=== PATIENT | male | born 1990 | race Caucasian/White ===

== ENCOUNTER 2023-01-31 01:44 | Emergency (ER) | payer MEDICAID, SELFPAY ==
--- NOTE | ~2023-01-31 | XR_ITS ---
EXAMINATION: XR ANKLE, RIGHT CLINICAL INFORMATION: Question of lateral malleolus fracture. COMPARISON: None TECHNIQUE: AP, lateral, and mortise views of the right ankle. FINDINGS: No fracture. Alignment is anatomic. Joint spaces are maintained. No joint effusion. Small tibiotalar marginal osteophytes. No significant soft tissue swelling. XR/XR ankle RT 2V IMPRESSION: No acute fracture or dislocation.
--- NOTE | ~2023-01-31 | XR_ITS ---
EXAMINATION: XR FOOT, LEFT CLINICAL INFORMATION: Pain. Evaluate for fifth toe fracture COMPARISON: None TECHNIQUE: AP, lateral, and oblique views of the left foot. FINDINGS: The bones and soft tissues are normal. No fracture, with attention to the fifth digit. Alignment is anatomic. Joint spaces are maintained. XR/XR foot LT 2V IMPRESSION: Normal left foot.
[2023-01-31 01:53] VITALS: BP 131/80; PULSE 75; RESP 16; TEMP 36.7; O2SAT 100
[2023-01-31 01:59] VITALS: BMI 24.4
--- NOTE | 2023-01-31 02:05 | ED.LOWEXIN ---
HPI - Extremity Injury (Lower) General Chief Complaint: Extremity Injury, Lower Stated Complaint: foot inj, toe infection Time Seen by Provider: 01/31/23 01:56 Source: patient Mode of arrival: ambulatory Limitations: no limitations History of Present Illness HPI Narrative: Patient comes to the emergency room complaining of blisters in both feet. Patient states that he is homeless, he has been walking long distance with wet socks. Patient complaining of left 5th toe pain and right ankle pain. Denies any injuries. Related Data Previous Rx's Medication Instructions Recorded terbinafine HCl 1 % topical cream 1 appl topical BID #30 grams 01/31/23 (Athlete's Foot (terbinafine)) Allergies Allergy/AdvReac Type Severity Reaction Status Date / Time No Known Allergies Allergy Verified 01/31/23 02:05 Review of Systems Review of Systems: Constitutional : No Weight loss, No Fever, No Chills, No Night Sweats, No Fatigue, No Malaise ENT/Mouth : No Hearing loss, No Ear Pain, No Nasal Congestion, No Sinus Pain, No Hoarseness, No sore throat, No Rhinorrhea, No Swallowing Difficulty Eyes: No Eye Pain, No Swelling, No Redness, No Foreign Body, No Discharge, No Vision Changes Cardiovascular : No Chest Pain, No SOB, No Dyspnea on Exertion, No Orthopnea, No Edema, No Palpitations Respiratory : No Cough, No Sputum, No Wheezing, No Smoke Exposure, No Dyspnea Gastrointestinal : No Nausea, No Vomiting, No Diarrhea, No Constipation, No abdominal Pain, No Hematochezia, No Melena Genitourinary : no irregular bleeding, No Dysuria, No Urinary Frequency, No Hematuria, No Urinary Incontinence, No Urgency, No Flank Pain, No Urinary Flow Changes, No Hesitancy Musculoskeletal : No joint pain, No Myalgias, No Joint Swelling Skin : Complaining of blisters and calluses on both feet Neuro : No Weakness, No Numbness, No Paresthesias, No Loss of Consciousness, No Dizziness, No Headache Psych : No Anxiety/Panic, No Depression, No SI/HI/AH/VH, No Social Issues, Heme/Lymph: No Bruising, No Bleeding,No Lymphadenopathy Endocrine : No Polyuria, No Polydipsia, No Temperature Intolerance PMFSH Social History Social History Advance Directives: No Advance Directives Information Provided: Yes Physical Exam Vital Signs: Vital Signs: Last Vital Signs Temp 98.1 F 01/31/23 01:53 Pulse 75 01/31/23 01:53 Resp 16 01/31/23 01:53 BP 131/80 01/31/23 01:53 Pulse Ox 100 01/31/23 01:53 O2 Del Method 01/31/23 01:53 BMI result Body Mass Index 24.4 Const: Other: Appearance: Alert. Oriented X3. No acute distress. Eyes: Pupils equal, round and reactive to light. ENT: Pharynx normal. Neck: Normal inspection. Neck supple. No lymph nodes noted. No crepitus CVS: Normal heart rate and rhythm. Pulses normal. Normal S1 and S2 Respiratory: No respiratory distress. Breath sounds normal. No Wheezing. No rales Abdomen: Soft and nontender. No rigidity. No distention. Skin: Skin warm and dry. Normal skin color. Normal skin turgor. Patient has multiple calluses and blisters in the soles of both feet Extremities: No lower extremity edema. No Lacerations. No Rash Neuro: Oriented X 3. No motor deficit. No sensory deficit. Moving all extremities. No slurred speech. CN 2 through 12 grossly intact Psych: calm, cooperative, normal affect Course Course Course Narrative: -patient has trench foot like skin in his feet -we did not have topical antifungals in the ED, barrier cream was applied to his feet. -x-rays negative for toe or ankle abnormality. Medical Decision Making Medical Decision Making MDM Narrative: -x-rays are negative for any osseous abnormalities. -patient likely having blisters from walking a prolonged period of time with what shoes and socks Differential Diagnosis Differential Diagnoses: The differential diagnosis associated with the presentation includes (Trench foot, blisters) Radiology Impression Discussion of test interpretation with radiology: I have reviewed the radiologist's reading. Radiologist Impression: No fracture. Alignment is anatomic. Joint spaces are maintained. No joint effusion. Small tibiotalar marginal osteophytes. No significant soft tissue swelling. XR/XR ankle RT 2V IMPRESSION: No acute fracture or dislocation. FINDINGS: The bones and soft tissues are normal. No fracture, with attention to the fifth digit. Alignment is anatomic. Joint spaces are maintained.? XR/XR foot LT 2V IMPRESSION: Normal left foot. Discharge Plan Discharge Clinical Impression: Blister of foot Patient Disposition: Home, Self-Care Instructions: Blister (ED) Additional Instructions: Please follow-up with your primary care physician tomorrow. If you have any worsening or new symptoms, please return to the emergency room or call 911 Prescriptions: New terbinafine HCl [Athlete's Foot (terbinafine)] 1 % cream 1 appl topical BID Qty: 30 0RF
== END 2023-01-31 03:29 | disposition home or self-care (01) ==
PROVIDERS: Emergency Provider Emergency Medicine
DX: S90.822A Blister (nonthermal), left foot, initial encounter (principal); S90.821A Blister (nonthermal), right foot, initial encounter; X58.XXXA Exposure to other specified factors, initial encounter; Y93.9 Activity, unspecified; Y92.9 Unspecified place or not applicable; Y99.9 Unspecified external cause status
CPT/HCPCS: 73600; 73620; 99282; 99283

== ENCOUNTER 2023-10-15 13:58 | Emergency (ER) | payer MEDICAID, SELFPAY ==
[2023-10-15 15:38] VITALS: BP 141/85; PULSE 116; RESP 16; TEMP 36.4; O2SAT 93; BMI 25.1
--- NOTE | 2023-10-15 15:42 | ED_ITS ---
HPI - General Adult General Chief complaint: General Medical Stated complaint: medication Time Seen by Provider: 10/15/23 15:43 Source: patient Mode of arrival: ambulatory Limitations: no limitations History of Present Illness HPI narrative: 33 year old male w/ pmhx of opioid use disorder on 137mg Methadone presents to the ED requesting Methadone dose. States he was given 2 bottles of methadone on 10/12/23 as the clinic ([facility]) would be closed for thanksgiving. Last dose yesterday. States he missed his appointment this morning. Presents with both empty methadone bottles. No physical complaints. Related Data Previous Rx's Medication Instructions Recorded terbinafine HCl 1 % topical cream 1 appl topical BID #30 grams 01/31/23 (Athlete's Foot (terbinafine)) Allergies Allergy/AdvReac Type Severity Reaction Status Date / Time Penicillins Allergy Unknown Verified 10/15/23 15:41 Review of Systems Review of Systems: Constitutional: No fever, chills, fatigue, night sweats, weight changes ENT/Mouth: No ear pain, hearing loss, nasal congestion, sinus pain, rhinorrhea, sore throat Eyes: No eye pain, swelling, redness, vision changes, discharge Cardio: No chest pain, palpitations, OLIVIA, orthopnea, peripheral edema Pulm: No SOB, cough, sputum, wheezing, dyspnea, hemoptysis GI: No nausea, vomiting, hematemesis, abdominal pain, diarrhea, constipation, hematochezia, melena : No irregular bleeding, dysuria, frequency, urgency, hesitancy, hematuria, flank pain, urinary flow changes MSK: No back pain, neck pain, joint pain, myalgias Skin: No lesions, rashes Neuro: No weakness, numbness, paresthesias, LOC, dizziness, headache All other systems reviewed and are negative. FOR[facility]LY [facility], [facility] Past Medical History Attestation statement: The following information was validated with the patient. Source: old records reviewed and nursing notes reviewed Social History Advance Directives: No Advance Directives Information Provided: No Physical Exam ED Vital Signs: Vital Signs - 24 hr 10/15/23 15:38 Temperature 97.5 F Pulse Rate 116 H Respiratory Rate 16 Blood Pressure 141/85 H Pulse Oximetry 93 Oxygen Delivery Method Room Air BMI result Body Mass Index 25.1 Vital signs stable Const General: cooperative, healthy appearing, comfortable, no acute distress, alert and awake Orientation/consciousness: patient oriented x3 Limitations: no limitations Eyes General: appearance normal, both eyes and all related structures Conjunctivae: conjunctivae normal Sclerae: sclerae normal Pupils: Equal, round and reactive pupils present Neck Neck: Yes normal visual inspection Resp Effort & Inspection: normal respiratory effort Auscultation: clear to auscultation bilaterally Cardio Rate: regular rate Rhythm: regular rhythm Skin General skin exam: no rashes or lesions noted Neuro General: patient oriented x3, gait normal and moves all extremities Cranial nerves: Yes Equal, round and reactive pupils present Extrem General: Yes normal to inspection Medical Decision Making Medical Decision Making MDM Narrative: 33 year old male w/ pmhx of opioid use disorder on 137mg Methadone presents to the ED requesting Methadone dose. VSS. Nontoxic appearing and in NAD. Exam unrem arkable. Patient presents with methadone bottles dated 10/13/2023 and 10/14/2023 with dose of 137mg. python web developer spoke with recovery who confirmed that the dose does not have to be verified if patient has methadone bottles with him. He has no complaints in ED today. Differentials include opioid dependence, methadone dependence. Methadone dose will be administered. Differential Diagnosis Differential Diagnoses: The differential diagnosis associated with the presentation includes As above. Admission/Observation Not indicated. External Record Review External record reviewed: Inpatient record Chronic Conditions Patient?s care impacted by: Other (opioid dependence) Social Determinants Patient?s care significantly limited by Social Determinants of Health including: Other Social Determinant of Health Critical Care Time Critical Care Time Critical Care Time: No Discharge Plan Discharge Clinical Impression: Methadone maintenance therapy patient Patient Disposition: Home, Self-Care Instructions: Opioid Use Disorder (ED) Additional Instructions: You received your methadone dose in the ED today. Make sure you are making into the clinic on time for your dosing. If you happen to miss another dose please return to the emergency department. Prescriptions: No Action terbinafine HCl [Athlete's Foot (terbinafine)] 1 % cream 1 appl topical BID Qty: 30 0RF Interventions: LWBS Worksheet Last Done: 10/15/23 14:51
[2023-10-15] MEDS: methADONE HCl 20 MG/2 ML ORAL.CONC 137 MG PO (16:03)
== END 2023-10-15 16:07 | disposition home or self-care (01) ==
PROVIDERS: Emergency Provider Emergency Medicine
DX: F11.20 Opioid dependence, uncomplicated (principal)
CPT/HCPCS: 99282; 99283